=== PATIENT | female | born 2000 | race Caucasian/White ===

== ENCOUNTER 2023-07-03 16:44 | Emergency (ER) | payer MEDICAID, SELFPAY ==
--- NOTE | 2023-07-03 16:49 | ECG_ITS ---
[facility] Test Date: 2023-07-03 Pat Name: Helen Greenwood Department: Room: Gender: Female Shirt Bander: : 2000 Requested By: Jaguar Ramos Order Number: [id number] Faustino MD: Margaret Hurtado M.D. Measurements Intervals [place] Rate: 73 P: 46 MS: 167 QRS: 56 QRSD: 76 T: 38 QT: 361 QTc: 399 Interpretive Statements SINUS RHYTHM POSSIBLE LEFT ATRIAL ENLARGEMENT [-0.1mV P-WAVE IN V1/V2] No previous ECG available for comparison Electronically Signed On 07-03-2023 17:30:44 CDT by Margaret Hurtado M.D. [id number]
[2023-07-03 16:53] VITALS: BP 143/89; PULSE 82; RESP 16; TEMP 36.6; O2SAT 100; BMI 31.6
--- NOTE | 2023-07-03 18:24 | W.ED.SOB ---
HPI - SOB/Dyspnea General: Chief Complaint: Shortness of Breath/Dyspnea Stated Complaint: sob, possible asthma Time Seen by Provider: 07/03/23 17:28 History of Present Illness: HPI Narrative: 22-year-old female reports that she is feeling some tightness in her lungs making it harder to breathe. She reports has been doing some moving and has been exposed to a lot of particulate matter in the air as well as allergens. She does have a history of asthma. She tried using her inhaler and her nebulizer but did not seem to get relief. In the past she has been on montelukast for allergies and asthma. She is having a mild cough but it is rare and more triggered by what she feels to be bronchospasm or tightness. No fever, chills, swelling, syncope, diaphoresis. No symptoms of URI. Oxygen Saturation is 100% on arrival. Review of Systems General: Reports: 10 or more systems reviewed and unremarkable except in HPI and below PFSH ED PFSH: Social History Smoking and tobacco/nicotine status: never used tobacco/nicotine Physical Exam Const: COMMON NORMALS: no limitations, alert and well nourished EXAM LIMITATIONS: no altered mental status HENMT: COMMON NORMALS: normocephalic, atraumatic and external ears normal HEAD & SCALP: normocephalic and atraumatic EXTERNAL EAR: Yes external ears normal MOUTH: no muffled voice Neck/C-Spine: COMMON NORMALS: no JVD GENERAL: Yes normal visual inspection and Yes trachea midline Resp: COMMON NORMALS: normal respiratory effort, No retractions, No use of accessory muscles and clear to auscultation bilaterally AUSCULTATION: clear to auscultation bilaterally, normal I/E ratio, no crackles, no rales, no rhonchi, no wheezes, breath sounds present and lung sounds not diminished Cardio: COMMON NORMALS: no JVD, regular rate and regular rhythm RATE: regular rate RHYTHM: regular rhythm Extremity: COMMON NORMALS: normal to inspection Neuro: COMMON NORMALS: moves all extremities, no focal motor deficits and no sensory deficits noted SENSORIUM/ORIENTATION: Yes alert SPEECH: speech normal Psych: COMMON NORMALS: mental status grossly normal, Normal thought process present, cooperative, normal affect and speech normal SPEECH: Yes normal speech THOUGHT PROCESS: Normal thought process present Skin: COMMON NORMALS: no rashes or lesions noted, turgor normal and no jaundice GENERAL SKIN EXAM: no rashes or lesions noted and turgor normal Course Vital Signs: Vital signs: Vital Signs Temperature 97.9 F 07/03/23 16:53 Pulse Rate 82 07/03/23 18:29 Respiratory Rate 16 07/03/23 18:25 Blood Pressure 143/89 07/03/23 16:53 Pulse Oximetry 100 07/03/23 18:25 Oxygen Delivery Me thod Room Air 07/03/23 18:25 MDM - SOB/Dyspnea Medical Decision Making Well-appearing, nontoxic, no acute distress. lungs clear. inhalational particulate matter and allergens reported by history. We will try montelukast and a Decadron shot. Do not suspect pneumonia, effusion, dissection, PE, acute coronary syndrome, heart attack, effusion, pneumothorax, Or other emergent etiology. No radiology studies performed this visit Discharge Plan Discharge Patient Disposition: Home Clinical Impression: Bronchospasm Condition: Stable Prescriptions: New montelukast 10 mg tablet 10 mg PO DAILY Qty: 30 2RF Discontinued montelukast 10 mg tablet 10 mg PO DAILY amoxicillin 500 mg capsule 500 mg PO BID 10 Days Qty: 20 0RF No Action aripiprazole [Abilify] 20 mg tablet 20 mg PO DAILY venlafaxine 75 mg tablet 75 mg PO DAILY Discharge Orders: Discharge ED (Routine); Ordered 07/03/23 Ordered By: Zachary Ramirez Discharge Diet: Advance as tolerated Discharge Activity: Increase activity as tolerated Patient Instructions: Bronchospasm (ED) Activity Restrictions/Additional Instructions: You have received Decadron 10mg steroid. Take monteleukast as directed. Use albuterol inhaler and or nebulizer. Call your doctor if you are not improving. Go to ER for emergent symptoms. Coding Level of Care Code ED Cloth Mercerizing Supervisor for Jazmine Cruz
[2023-07-03 18:25] VITALS: PULSE 80; RESP 16; O2SAT 100
[2023-07-03] MEDS: albuterol 2.5 mg/3 mL Neb INHALATION (18:27)
[2023-07-03 18:29] VITALS: PULSE 82
[2023-07-03] MEDS: cetirizine 10 mg Tablet PO (18:51)
[2023-07-03] MEDS: dexamethasone 10 mg/mL INJ IM (18:52)
[2023-07-03 19:22] VITALS: BP 141/98; PULSE 90; RESP 18; O2SAT 90
== END 2023-07-03 19:24 | disposition home or self-care (01) ==
PROVIDERS: Emergency Provider Emergency Medicine
DX: J98.01 Acute bronchospasm (principal)
CPT/HCPCS: 93005; 94640; 96372; 99284; J1100; J7613

== ENCOUNTER 2023-07-18 08:31 | Emergency (ER) | payer MEDICAID, SELFPAY ==
--- NOTE | 2023-07-18 08:38 | XR_ITS ---
WS: [id number] Portable AP upright chest, 07/18/2023 Clinical Data: dyspnea/cough Comparison: None. Findings: No nodules, masses or effusions are seen. The heart is normal. The pulmonary vascularity is not increased. No pneumonia or pneumothorax is seen. Monitor leads are on the chest wall. Impression: Negative chest.
[2023-07-18 08:41] VITALS: BP 130/68; PULSE 105; RESP 22; TEMP 36.5; O2SAT 100; BMI 39.0
[2023-07-18 08:48] VITALS: BP 130/68; PULSE 95; RESP 22; O2SAT 99
[2023-07-18] MEDS: ipratropium-albuterol 3 mL Neb INHALATION (08:49)
[2023-07-18 08:50] VITALS: PULSE 94; RESP 16; O2SAT 98
--- NOTE | 2023-07-18 08:53 | PC.PHAR ---
pt states she takes care of her own medications- pt states stop taking her meds months ago and then started taking a week or two ago but states it made her chest hurt so she stop taking again-notes are made in the pharmacy comments with last filled dates-abilify 20mg daily last filled 11/05/22 90d/s,flovent 220mcg 1p bid filled 02/09/23 30d/s,montelukast 10mg daily last filled 11/05/22 90d/s,topamax 50mg bid filled 11/09/22 30d/s and effexor er 75mg daily filled 02/14/23 90d/s-pt states she hasnt taken trazodone 50mg hs for months [facility] last filled 10/16/22 90d/s
[2023-07-18 08:56] VITALS: PULSE 96; RESP 16; O2SAT 98
[2023-07-18 09:08] LABS: Basophils # 0.1 10^3/uL (0.0-0.1); Basophils % 0.7 %; Eosinophils # 0.4 10^3/uL (0.0-0.8); Eosinophils % 4.6 %; Hematocrit 37.1 % (36-47); Lymphocytes # 1.6 10^3/uL (0.8-4.8); Lymphocytes % 21.4 %; Mean Corpuscular HGB Conc 32.9 g/dL (30-55); Mean Corpuscular Hemoglobin 30.7 pg (27-33); Mean Corpuscular Volume 93.5 fl (85-98); Monocytes # 0.6 10^3/uL (0.2-0.9); Monocytes % 7.3 %; Neutrophils # 5.04 10^3/uL (1.8-7.7); Neutrophils % 65.5 %; Nucleated Red Blood Cells % 0 %; Platelet Count 231 10^3/cmm (157-399); Red Blood Count 3.97 10^6/uL (3.85-5.65); Red Cell Distribution Width 11.9 % (12.1-15.1); White Blood Count 7.68 10^3/uL (3.29-11.43)
--- NOTE | 2023-07-18 09:09 | W.ED.GENADLT ---
HPI - General Adult General: Chief complaint: General Medical Stated complaint: SOB Time Seen by Provider: 07/18/23 08:36 Source: patient Mode of arrival: ambulatory History of Present Illness: 22-year-old female complains sinus congestion and drainage for about the last 2 weeks. No fever sweats or chills nonproductive cough no vomiting or diarrhea. Sinus drainage is precipitating a significant cough. She denies any hematemesis coffee-ground emesis no epistaxis. Cough is minimally productive. Onset (ago): week(s) Severity: moderate Relieving factors: none Exacerbating factors: none Associated symptoms: Reports cough; Deny chest pain, confusion, diaphoresis, decreased appetite, dyspnea, fevers/chills, headache(s), malaise, nausea, rash, palpitations, seizures, short of breath, syncope, vomiting or weakness Treatments prior to arrival: none Review of Systems Const: Denies: fever(s), chills, malaise or diaphoresis Card: Denies: chest pain, palpitations or syncope Resp: Denies: dyspnea GI: Denies: abdominal pain, nausea or vomiting : Denies: dysuria, urinary frequency or urinary urgency Musc: Denies: neck pain or back pain Skin/Breast: Denies: rash Neuro: Denies: headache(s) or confusion PFSH ED PFSH: Social History Smoking and tobacco/nicotine status: never used tobacco/nicotine Physical Exam Const: COMMON NORMALS: no acute distress GENERAL APPEARANCE: cooperative and comfortable ORIENTATION/CONSCIOUSNESS: Yes awake, Yes oriented to person, Yes oriented to place and Yes oriented to time HENMT: COMMON NORMALS: normocephalic, atraumatic and hearing grossly normal bilaterally HEAD & SCALP: normocephalic and atraumatic Resp: COMMON NORMALS: normal respiratory effort, No retractions, No use of accessory muscles and clear to auscultation bilaterally AUSCULTATION: clear to auscultation bilaterally Cardio: COMMON NORMALS: regular rate, regular rhythm and No murmurs present (Cardio) RATE: regular rate RHYTHM: regular rhythm GI: COMMON NORMALS: Soft to palpation and No hepatosplenomegaly present AUSCULTATION: Yes normoactive bowel sounds PALPATION: Yes Soft to palpation, No Tenderness to palpation present (GI), No Guarding due to palpation present (GI) and Yes No hepatosplenomegaly present Extremity: COMMON NORMALS: normal to inspection, capillary refill normal, no clubbing, cyanosis or edema, no calf tenderness and no pedal edema Neuro: SENSORIUM/ORIENTATION: Yes oriented to person, Yes oriented to place and Yes oriented to time Skin: COMMON NORMALS: no rashes or lesions noted GENERAL SKIN EXAM: no rashes or lesions noted Course Vital Signs: Vital signs: Vital Signs Temperature 97.7 F 07/18/23 08:41 Pulse Rate 96 07/18/23 08:56 Respiratory Rate 16 07/18/23 08:56 Blood Pressure 130/68 07/18/23 08:48 Pulse Oximetry 98 07/18/23 08:56 Oxygen Delivery Me thod Room Air 07/18/23 08:56 MDM - General Adult Medical Decision Making Moderate sinusitis has failed supportive cares. Start amoxicillin clavulanic acid 875 twice daily for 7 days Medical Records I reviewed the patient's medical records. Lab Data I reviewed the patient's lab results. 07/18/23 08:51 07/18/23 08:51 Laboratory Results WBC 7.68 10^3/uL (3.29-11.43) 07/18/23 08:51 RBC 3.97 10^6/uL (3.85-5.65) 07/18/23 08:51 Hgb 12.20 g/dL (11.27-16.99) 07/18/23 08:51 Hct 37.1 % (36-47) 07/18/23 08:51 MCV 93.5 fl (85-98) 07/18/23 08:51 MCH 30.7 pg (27-33) 07/18/23 08:51 MCHC 32.9 g/dL (30-55) 07/18/23 08:51 RDW 11.9 % (12.1-15.1) L 07/18/23 08:51 Plt Count 231 10^3/cmm (157-399) 07/18/23 08:51 MPV 9.0 fL (7.4-10.4) 07/18/23 08:51 Neut % (Auto) 65.5 % 07/18/23 08:51 Lymph % (Auto) 21.4 % 07/18/23 08:51 [place] % (Auto) 7.3 % 07/18/23 08:51 Eos % (Auto) 4.6 % 07/18/23 08:51 Baso % (Auto) 0.7 % 07/18/23 08:51 Neut # (Auto) 5.04 10^3/uL (1.8-7.7) 07/18/23 08:51 Lymph # (Auto) 1.6 10^3/uL (0.8-4.8) 07/18/23 08:51 [place] # (Auto) 0.6 10^3/uL (0.2-0.9) 07/18/23 08:51 Eos # (Auto) 0.4 10^3/uL (0.0-0.8) 07/18/23 08:51 Baso # (Auto) 0.1 10^3/uL (0.0-0.1) 07/18/23 08:51 Nucleated RBC % (auto) 0 % 07/18/23 08:51 Nucleated RBCs # 0.0 /100WBC 07/18/23 08:51 Sodium 140 mmol/L (136-145) 07/18/23 08:51 Potassium 4.0 mmol/L (3.5-5.1) 07/18/23 08:51 Chloride 108 mmol/L (98-107) H 07/18/23 08:51 Carbon Dioxide 21 mmol/L (22-29) L 07/18/23 08:51 Anion Gap 15.0 (5-19) 07/18/23 08:51 BUN 10 mg/dL (6-20) 07/18/23 08:51 Creatinine 0.5 mg/dL (0.5-0.9) 07/18/23 08:51 GFR Calculation 151.6 mL/min (90-130) H 07/18/23 08:51 Glucose 136 mg/dL (65-115) H 07/18/23 08:51 Calculated Osmolality 291 mOsm/kg (285-295) 07/18/23 08:51 Calcium 8.8 mg/dL (8.5-10.5) 07/18/23 08:51 Total Bilirubin 0.2 mg/dL (0.15-1.2) 07/18/23 08:51 AST 15 U/L (0-32) 07/18/23 08:51 ALT 22 U/L (0-33) 07/18/23 08:51 Alkaline Phosphatase 76 U/L (35-105) 07/18/23 08:51 Total Protein 6.5 g/dL (6.6-8.7) L 07/18/23 08:51 Albumin 3.8 g/dL (3.5-5.2) 07/18/23 08:51 Globulin 2.7 g/dL (1.3-4.6) 07/18/23 08:51 All radiology interpretation(s) finalized by discharge Discharge Plan Discharge Patient Disposition: Home Clinical Impression: Sinusitis, acute Condition: Stable Prescriptions: New amoxicillin-pot clavulanate 875-125 mg tablet 1 tab PO BID Qty: 20 0RF No Action aripiprazole [Abilify] 20 mg tablet 20 mg PO DAILY topiramate [Topamax] 50 mg tablet 50 mg PO BID montelukast 10 mg tablet 10 mg PO DAILY Qty: 30 2RF albuterol sulfate 90 mcg/actuation HFA aerosol inhaler 2 puff INHALATION Q4H PRN (Reason: Shortness Of Breath) Flonase Allergy Relief 50 mcg/actuation spray,suspension 2 spray intranasal DAILY PRN (Reason: Allergy Symptoms) Rx Instructions: administer into each nostril Flovent HFA 220 mcg/actuation HFA aerosol inhaler 1 puff INHALATION BID venlafaxine 75 mg capsule,extended release 24hr 75 mg PO DAILY Discharge Orders: Discharge ED (Routine); Ordered 07/18/23 Ordered By: Jaguar Adam Referrals: Becca Harris PA [Primary Care Provider] - Discharge Diet: Usual diet Discharge Activity: Resume usual activity Patient Instructions: Sinusitis (ED), Opioid Safety, Pain Management Activity Restrictions/Additional Instructions: Thank you for choosing [facility] for your healthcare needs today. Please realize this is an emergency room and that we are providing you with a medical screening exam and this may not be complete and all inclusive of all the testing and or work up that you may need to determine your ailment or severity of your illness. It is very important that you follow up as instructed or that you return to the Emergency Department should you have concerns or if your condition changes or worsens in any way. Coding Level of Care Code ED Medical Field Representative for Jazmine Cruz
[2023-07-18 09:31] LABS: Alanine Aminotransferase 22 U/L (0-33); Albumin Level 3.8 g/dL (3.5-5.2); Alkaline Phosphatase 76 U/L (35-105); Aspartate Amino Transferase 15 U/L (0-32); Blood Urea Nitrogen 10 mg/dL (6-20); Calcium 8.8 mg/dL (8.5-10.5); Carbon Dioxide 21 mmol/L (22-29); Chloride 108 mmol/L (98-107); Globulin 2.7 g/dL (1.3-4.6); Glomerular Filtration Rate 151.6 mL/min (90-130); Glucose 136 mg/dL (65-115); Osmolality Calculated 291 mOsm/kg (285-295); Sodium 140 mmol/L (136-145); Total Bilirubin 0.2 mg/dL (0.15-1.2); Total Protein 6.5 g/dL (6.6-8.7)
== END 2023-07-18 09:20 | disposition home or self-care (01) ==
PROVIDERS: Emergency Provider Family Medicine; PCP Physician Assistant
DX: J01.90 Acute sinusitis, unspecified (principal)
CPT/HCPCS: 36415; 71045; 80053; 85025; 94640; 99284

== ENCOUNTER 2023-07-31 09:51 | Inpatient (IN) | payer MEDICAID, SELFPAY ==
[2023-07-31 09:57] VITALS: BP 171/96; PULSE 86; RESP 17; TEMP 36.6; O2SAT 99; BMI 32.2
--- NOTE | 2023-07-31 10:00 | ECG_ITS ---
[facility] Test Date: 2023-07-31 Pat Name: Helen Greenwood Department: Room: Gender: Female Upholstery Handler: : 2000 Requested By: Mauricio Cardona Order Number: [id number] Harmon MD: Evelin Cast M.D. Measurements Intervals [place] Rate: 76 P: 38 [place]: 172 QRS: 48 QRSD: 84 T: 26 QT: 348 QTc: 392 Interpretive Statements SINUS RHYTHM Compared to ECG 07/03/2023 16:52:46 No significant changes Electronically Signed On 07-31-2023 12:40:10 CENTER MEDICAL DIRECTOR by Evelin Cast M.D. [id number]
--- NOTE | 2023-07-31 10:14 | W.ED.PSYCHS ---
HPI - Psych General: Chief Complaint: Psychiatric Symptoms Stated Complaint: SI Time Seen by Provider: 07/31/23 10:00 History of Present Illness: 22-year-old female presents emergency department with complaints of feeling severely depressed for a very long time. She states she has not sought out help. 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 She states she is depressed about having to depend on everyone because she does not know how to drive. She states that she does not necessarily have a support system as she does not feel like she can talk to anyone about her problems. She is very tearful while in the emergency department. She states that she just wants to go to sleep and never wake up again. She states that she does not have a specific plan and she does intermittently smile. She does have poor eye contact during the initial evaluation. She denies previous inpatient admissions and denies previous psychiatric or behavioral counseling. She denies previous suicide attempt. She denies homicidal ideation. Associated symptoms: Reports depression and suicidal ideation Review of Systems General: Reports: 10 or more systems reviewed and unremarkable except in HPI and below Psych: Reports: depression, hopelessness and suicidal ideation [facility] ED PFSH: Medical History (Updated 07/31/23 @ 10:18 by Mauricio Cardona MD) Psychiatric care Social History Smoking and tobacco/nicotine status: never used tobacco/nicotine Physical Exam Narrative: EXAM NARRATIVE: Constitutional: the patient appears well nourished and with normal development. Vital signs reviewed as documented. HENMT: Normocephalic, atraumatic. External ears with normal appearance without drainage. Nose without drainage, normal appearance. Mucus membranes moist. Neck is supple, No jugular venous distension, trachea is midline, no appreciable carotid bruits. No lymphadenopathy. No meningeal signs. Flexion, extension and lateral rotation is without pain. Eyes: Pupils are equal, round, reactive to light and accommodation. No scleral icterus. Extra-ocular movement are intact. Thorax is symmetrical and with equal rise and fall with respirations. Resp: Lungs are clear to auscultation. No wheezes, rales, crackles or ronchi at present. Cardio: Regular rate and rhythm. Positive S1, S2. No appreciable murmurs, rubs or gallops. GI: Abdominal exam reveals normal bowel sounds to all quadrants. No organomegaly. No obvious palpable masses noted. No hepatomegally appreciated. Soft, nontender to palpation. Extremity: Extremities are non-edematous and both femoral and pedal pulses are 2+ and equal bilaterally. Moves all extremities well, sensation in all extremities. Neuro: Alert and oriented x4, person, place, time and situation. Cranial nerves II through XII are grossly intact, there is no focal neurological deficits that I can appreciate at present. Motor strength in the upper and lower extremities are equal and bilateral 5/5. Psych: Cooperative, calm, tearful, depressed, normal thought process, appropriate judgment. Positive for suicidal ideations without plan. Skin: No lesions, rashes. No gross abnormalities noted. Back: Symmetrical, no obvious deformity, No CVA tenderness Course Vital Signs: Vital signs: Vital Signs Temperature 97.9 F 07/31/23 09:57 Pulse Rate 86 07/31/23 09:57 Respiratory Rate 17 07/31/23 09:57 Blood Pressure 171/96 07/31/23 09:57 Pulse Oximetry 99 07/31/23 09:57 Oxygen Delivery Me thod Room Air 07/31/23 09:57 MDM - Psych Medical Decision Making Physical exam completed, laboratory evaluation to include CBC, CMP alcohol urine drug screen EKG COVID screen urine hCG and urinalysis. Medical Records I reviewed the patient's medical records. Lab Data I reviewed the patient's lab results. 07/31/23 10:17 07/31/23 10:17 Laboratory Results WBC 7.03 10^3/uL (3.29-11.43) 07/31/23 10:17 RBC 4.11 10^6/uL (3.85-5.65) 07/31/23 10:17 Hgb 12.50 g/dL (11.27-16.99) 07/31/23 10:17 Hct 37.7 % (36-47) 07/31/23 10:17 MCV 91.7 fl (85-98) 07/31/23 10:17 MCH 30.4 pg (27-33) 07/31/23 10:17 MCHC 33.2 g/dL (30-55) 07/31/23 10:17 RDW 11.9 % (12.1-15.1) L 07/31/23 10:17 Plt Count 337 10^3/cmm (157-399) 07/31/23 10:17 MPV 9.0 fL (7.4-10.4) 07/31/23 10:17 Neut % (Auto) 66.8 % 07/31/23 10:17 Lymph % (Auto) 23.2 % 07/31/23 10:17 [place] % (Auto) 6.7 % 07/31/23 10:17 Eos % (Auto) 2.3 % 07/31/23 10:17 Baso % (Auto) 0.7 % 07/31/23 10:17 Neut # (Auto) 4.70 10^3/uL (1.8-7.7) 07/31/23 10:17 Lymph # (Auto) 1.6 10^3/uL (0.8-4.8) 07/31/23 10:17 [place] # (Auto) 0.5 10^3/uL (0.2-0.9) 07/31/23 10:17 Eos # (Auto) 0.2 10^3/uL (0.0-0.8) 07/31/23 10:17 Baso # (Auto) 0.1 10^3/uL (0.0-0.1) 07/31/23 10:17 Nucleated RBC % (auto) 0 % 07/31/23 10:17 Nucleated RBCs # 0.0 /100WBC 07/31/23 10:17 Sodium 138 mmol/L (136-145) 07/31/23 10:17 Potassium 3.7 mmol/L (3.5-5.1) 07/31/23 10:17 Chloride 103 mmol/L (98-107) 07/31/23 10:17 Carbon Dioxide 22 mmol/L (22-29) 07/31/23 10:17 Anion Gap 16.7 (5-19) 07/31/23 10:17 BUN 13 mg/dL (6-20) 07/31/23 10:17 Creatinine 0.6 mg/dL (0.5-0.9) 07/31/23 10:17 GFR Calculation 122.8 mL/min (90-130) 07/31/23 10:17 Glucose 123 mg/dL (65-115) H 07/31/23 10:17 Calculated Osmolality 287 mOsm/kg (285-295) 07/31/23 10:17 Calcium 9.2 mg/dL (8.5-10.5) 07/31/23 10:17 Total Bilirubin 0.4 mg/dL (0.15-1.2) 07/31/23 10:17 AST 19 U/L (0-32) 07/31/23 10:17 ALT 28 U/L (0-33) 07/31/23 10:17 Alkaline Phosphatase 79 U/L (35-105) 07/31/23 10:17 Total Protein 7.2 g/dL (6.6-8.7) 07/31/23 10:17 Albumin 4.4 g/dL (3.5-5.2) 07/31/23 10:17 Globulin 2.8 g/dL (1.3-4.6) 07/31/23 10:17 TSH 2.90 uIU/mL (0.27-4.20) 07/31/23 10:17 HCG, Qual Negative (Negative) 07/31/23 10:37 Urine Color Yellow (Yellow) 07/31/23 10:37 Urine Appearance Cloudy (CLEAR) A 07/31/23 10:37 Urine pH 5 (5-7) 07/31/23 10:37 Ur Specific [place] 1.030 (1.005-1.030) 07/31/23 10:37 Urine Protein Neg (Negative) 07/31/23 10:37 Urine Glucose (UA) Norm (Normal) 07/31/23 10:37 Urine Ketones Negative (Negative) 07/31/23 10:37 Urine Blood 3+ (Negative) H 07/31/23 10:37 Urine Nitrate Negative (Negative) 07/31/23 10:37 Urine Bilirubin Neg (Negative) 07/31/23 10:37 Urine Urobilinogen Norm mg/dL (Negative) 07/31/23 10:37 Ur Leukocyte Esterase Trace (Negative) H 07/31/23 10:37 Urine RBC Rare /hpf (0-2) 07/31/23 10:37 Urine WBC 0-4 /hpf (0-5) H 07/31/23 10:37 Ur Squamous Epith Cells 5-10 /hpf (0-5) H 07/31/23 10:37 Amorphous Sediment 3+ /hpf 07/31/23 10:37 Urine Bacteria Trace /hpf (NONE) 07/31/23 10:37 Salicylates < 0.3 mg/dL (3-10) L 07/31/23 10:17 Urine Opiates Screen Negative ng/mL (Negative) 07/31/23 10:37 Acetaminophen < 5.0 ug/mL (10-30) L 07/31/23 10:17 Ur Barbiturates Screen Negative ng/mL (Negative) 07/31/23 10:37 Ur Phencyclidine Scrn Negative ng/mL (Negative) 07/31/23 10:37 Ur Amphetamines Screen Negative ng/mL (Negative) 07/31/23 10:37 U Benzodiazepines Scrn Negative ng/mL (Negative) 07/31/23 10:37 Urine Cocaine Screen Negative ng/mL (Negative) 07/31/23 10:37 U Marijuana (THC) Screen Positive ng/mL (Negative) H 07/31/23 10:37 Ethyl Alcohol < 10 mg/dL (0-10) 07/31/23 10:17 SARS-CoV-2 Ag (Rapid) negative (Negative) 07/31/23 10:25 No radiology studies performed this visit Discharge Plan Discharge Patient Disposition: Admitted As Inpatient Clinical Impression: Suicidal ideation, Depression Condition: Stable Prescriptions: No Action aripiprazole [Abilify] 20 mg tablet 20 mg PO DAILY topiramate [Topamax] 50 mg tablet 50 mg PO BID montelukast 10 mg tablet 10 mg PO DAILY Qty: 30 2RF albuterol sulfate 90 mcg/actuation HFA aerosol inhaler 2 puff INHALATION Q4H PRN (Reason: Shortness Of Breath) Flonase Allergy Relief 50 mcg/actuation spray,suspension 2 spray intranasal DAILY PRN (Reason: Allergy Symptoms) Rx Instructions: administer into each nostril Flovent HFA 220 mcg/actuation HFA aerosol inhaler 1 puff INHALATION BID venlafaxine 75 mg capsule,extended release 24hr 75 mg PO DAILY amoxicillin-pot clavulanate 875-125 mg tablet 1 tab PO BID Qty: 20 0RF Referrals: Becca Harris PA [Primary Care Provider] - Coding Level of Care Code ED [employer] Processing Group Leader for Chg Anthony
[2023-07-31 10:32] LABS: Basophils # 0.1 10^3/uL (0.0-0.1); Basophils % 0.7 %; Eosinophils # 0.2 10^3/uL (0.0-0.8); Eosinophils % 2.3 %; Hematocrit 37.7 % (36-47); Lymphocytes # 1.6 10^3/uL (0.8-4.8); Lymphocytes % 23.2 %; Mean Corpuscular HGB Conc 33.2 g/dL (30-55); Mean Corpuscular Hemoglobin 30.4 pg (27-33); Mean Corpuscular Volume 91.7 fl (85-98); Monocytes # 0.5 10^3/uL (0.2-0.9); Monocytes % 6.7 %; Neutrophils % 66.8 %; Nucleated Red Blood Cells % 0 %; Platelet Count 337 10^3/cmm (157-399); Red Blood Count 4.11 10^6/uL (3.85-5.65); Red Cell Distribution Width 11.9 % (12.1-15.1); White Blood Count 7.03 10^3/uL (3.29-11.43)
[2023-07-31 10:47] LABS: SARS Covid-2 Antigen negative (Negative)
[2023-07-31 10:56] LABS: Alanine Aminotransferase 28 U/L (0-33); Albumin Level 4.4 g/dL (3.5-5.2); Alkaline Phosphatase 79 U/L (35-105); Anion Gap 16.7 (5-19); Aspartate Amino Transferase 19 U/L (0-32); Blood Urea Nitrogen 13 mg/dL (6-20); Calcium 9.2 mg/dL (8.5-10.5); Carbon Dioxide 22 mmol/L (22-29); Chloride 103 mmol/L (98-107); Globulin 2.8 g/dL (1.3-4.6); Glomerular Filtration Rate 122.8 mL/min (90-130); Glucose 123 mg/dL (65-115); Osmolality Calculated 287 mOsm/kg (285-295); Potassium 3.7 mmol/L (3.5-5.1); Sodium 138 mmol/L (136-145); Total Bilirubin 0.4 mg/dL (0.15-1.2); Total Protein 7.2 g/dL (6.6-8.7)
[2023-07-31 10:58] LABS: Acetaminophen < 5.0 ug/mL (10-30); Alcohol Level < 10 mg/dL (0-10); Salicylate < 0.3 mg/dL (3-10)
[2023-07-31 11:07] LABS: HCG Qualitative Urine. Negative (Negative)
[2023-07-31 11:14] LABS: Amphetamines Screen Urine Negative (Negative); Barbiturates Screen Urine Negative (Negative); Benzodiazepines Screen Urine Negative (Negative); Cocaine Screen Urine Negative (Negative); Opiate Screen Urine Negative (Negative); PCP Screen Urine Negative (Negative); THC Screen Urine Positive (Negative)
[2023-07-31 11:33] LABS: Blood Urine 3+ (Negative); Glucose Urine UA Norm (Normal); Ketones Urine Negative (Negative); Protein Urine Neg (Negative); Urine Appearance Cloudy (CLEAR); Urine Color Yellow (Yellow)
[2023-07-31 11:34] LABS: Add Urine Microscopic? YES; Bilirubin Urine Neg (Negative); Leukocyte Esterase Urine Trace (Negative); Nitrate Urine Negative (Negative); Urobilinogen Urine Norm (Negative); pH Urine 5 (5-7)
[2023-07-31 11:35] LABS: Bacteria Urine TRACE /hpf; RBC Urine RARE /hpf (0-2); WBC Urine 0-4 /hpf (0-5)
[2023-07-31 11:36] LABS: Amorphous Sediment Urine 3+ /hpf
[2023-07-31 11:37] LABS: Add Urine Culture? No
[2023-07-31 14:00] VITALS: BP 119/85; PULSE 88; RESP 17; TEMP 36.6; O2SAT 100
--- NOTE | 2023-07-31 17:17 | PC.NURSE ---
This nurse present when security disposed of patient's cannibus gummies. Patient aware.
--- NOTE | 2023-07-31 17:17 | PC.NURSE ---
security notified of pt having 2 baggies of cannabis gummy and one bag of cannabis cookies. security disposed of all cannabis stated in note.
[2023-07-31] MEDS: hyDROXYzine 25 mg Capsule 50 MG PO (18:52)
[2023-07-31] MEDS: flu vacc pf 2023-24 (6 mos+) 60 MCG IM (19:43)
[2023-07-31 20:27] VITALS: BP 117/74; PULSE 80; RESP 16; TEMP 36.9; O2SAT 100
[2023-08-01 06:00] VITALS: BP 93/68; PULSE 74; RESP 16; TEMP 36.5; O2SAT 94
[2023-08-01 07:48] LABS: Basophils # 0.1 10^3/uL (0.0-0.1); Basophils % 0.9 %; Eosinophils # 0.4 10^3/uL (0.0-0.8); Eosinophils % 7.1 %; Hematocrit 37.6 % (36-47); Lymphocytes % 35.1 %; Mean Corpuscular HGB Conc 32.2 g/dL (30-55); Mean Corpuscular Hemoglobin 30.3 pg (27-33); Mean Corpuscular Volume 94.2 fl (85-98); Monocytes # 0.4 10^3/uL (0.2-0.9); Monocytes % 6.9 %; Neutrophils % 49.6 %; Nucleated Red Blood Cells % 0 %; Platelet Count 311 10^3/cmm (157-399); Red Blood Count 3.99 10^6/uL (3.85-5.65); Red Cell Distribution Width 11.8 % (12.1-15.1); White Blood Count 5.64 10^3/uL (3.29-11.43)
[2023-08-01 08:08] LABS: Anion Gap 13.9 (5-19); Blood Urea Nitrogen 16 mg/dL (6-20); Calcium 9.1 mg/dL (8.5-10.5); Carbon Dioxide 25 mmol/L (22-29); Chloride 106 mmol/L (98-107); Glomerular Filtration Rate 122.8 mL/min (90-130); Glucose 107 mg/dL (65-115); Osmolality Calculated 294 mOsm/kg (285-295); Potassium 3.9 mmol/L (3.5-5.1); Sodium 141 mmol/L (136-145)
[2023-08-01] MEDS: ibuprofen 600 mg Tablet PO (12:15)
[2023-08-01 14:00] VITALS: BP 122/84; PULSE 71; RESP 14; TEMP 36.9; O2SAT 100
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
[2023-08-01] MEDS: ARIPiprazole 2 mg Tablet PO (16:18)
[2023-08-01] MEDS: venlafaxine ER (24HR) 37.5 mg Capsule PO (16:18)
--- NOTE | 2023-08-01 20:07 | PC.NURSE ---
pt ref vs resp 18
[2023-08-02 06:00] VITALS: BP 117/74; PULSE 75; RESP 12; TEMP 36.8; O2SAT 98
[2023-08-02] MEDS: ibuprofen 600 mg Tablet PO (07:15)
[2023-08-02] MEDS: venlafaxine ER (24HR) 75 mg Capsule PO (08:41)
[2023-08-02] MEDS: ARIPiprazole 10 mg Tablet 5 MG PO (08:41)
--- NOTE | 2023-08-02 12:11 | P.NPUPN_ITS ---
Subjective NPU Subjective: 22-year-old white female with generalized anxiety disorder and major depressive disorder recurrent admitted with suicidal ideation. She reported that she was feeling better today. She had endorsed an extended period of low energy and hopelessness. She reported not feeling as down today. She had reported some difficulties with concentration and stated that she had significant problems wi th sleep prior to coming into the hospital. She had reported improved sleep at night. Mental Status Exam MSE Comments: the patient is a casually dressed female who appeared her stated age with fleeting eye contact and adequate hygiene. There was no evidence of any abnormal involuntary motor movements tics or tremors appreciated. Speech was monotone in quality and normal in rate and volume. There was evidence of significant psychomotor retardation. Her thought process was linear logical and goal-directed. Her thought content showed no evidence of suicidal ideation. She denied any homicidal ideation. There was no clear evidence of delusional thinking. She did not appear to be responding internal stimuli. She was alert and oriented to person place time and situation. Her mood was described as depressed. Her affect was restricted in range. Her insight appeared fair. Her judgment was poor. Her impulse control appeared guarded. Vitals/I&O/Wt Last Vital Signs Temp 98.3 F 08/02/23 06:00 Pulse 75 08/02/23 06:00 Resp 12 08/02/23 06:00 BP 117/74 08/02/23 06:00 Pulse Ox 98 08/02/23 06:00 O2 Del Method Room Air 08/02/23 06:00 Data NPU 08/01/23 07:36 08/01/23 07:36 A&P Assessment and plan (1) Major depressive disorder, recurrent: (2) Generalized anxiety disorder: Plan 22-year-old white female with a history of recurrent major depressive disorder admitted with worsening depression with a history of generalized anxiety disorder as well currently on no medications and actively suicidal. 1. Encourage individual, group and milieu therapy. 2. Recommend sober living treatment at the highest level of care to which the patient is willing to commit. 3. Continue q-15 minute checks for safety.? 4.? Continue Abilify 5mg in am and Effexor XR 75mg in am. 5.? Will attempt to gather collateral information. Involuntary Hold Information 96 Hour Hold: 96 Hour Involuntary Admission: No Attestations NPU Medical Necessity Statement*: Inpatient hospitalization is medically necessary and deemed to ?be ?the clinically appropriate intervention at this time.? We will monitor/initiate medications and make changes as indicated.? The patient?s likely length of stay 5-7 days. Coding Level of Care Code Acute Code for Chg Fwd Diagnoses Major depressive disorder, recurrent F33.9 Generalized anxiety disorder F41.1
[2023-08-02 14:00] VITALS: BP 123/71; PULSE 79; RESP 16; TEMP 36.8; O2SAT 96
[2023-08-02 22:00] VITALS: BP 123/85; PULSE 80; RESP 16; TEMP 36.6; O2SAT 98
[2023-08-03 06:00] VITALS: BP 104/53; PULSE 81; RESP 16; TEMP 36.8; O2SAT 98
[2023-08-03] MEDS: ibuprofen 600 mg Tablet PO (06:06)
[2023-08-03] MEDS: venlafaxine ER (24HR) 75 mg Capsule PO (08:47)
[2023-08-03] MEDS: ARIPiprazole 10 mg Tablet 5 MG PO (08:47)
[2023-08-03 14:00] VITALS: BP 130/83; PULSE 77; RESP 17; TEMP 36.5; O2SAT 100
--- NOTE | 2023-08-03 18:33 | P.NPUPN_ITS ---
Subjective NPU Subjective: 22-year-old white female with generalized anxiety disorder and major depressive disorder recurrent admitted with suicidal ideation. Patient reported no side effects from the increase in Effexor. She had reported feeling less depressed and stated that she was not thinking about hurting herself at this time. She reported improved motivation to return home soon. Staff notes patient had been less isolative and more social with her peers. She had reported adequate sleep and reported feeling less anxious here. Mental Status Exam 2 MSE Comments: the patient is a casually dressed female who appeared her stated age with fleeting eye contact and adequate hygiene. There was no evidence of any abnormal involuntary motor movements tics or tremors appreciated. Speech was monotone in quality and normal in rate and volume. There was evidence of mild psychomotor retardation. Her thought process was linear, logical and goal- directed. Her thought content showed no evidence of suicidal ideation. She denied any homicidal ideation. There was no clear evidence of delusional thinking. She did not appear to be responding internal stimuli. She was alert and oriented to person, place, time, and situation. Her mood was described as better. Her affect was less restricted in range. Her insight appeared fair. Her judgment was poor. Her impulse control appeared guarded. Vitals/I&O/Wt Last Vital Signs Temp 97.7 F 08/03/23 14:00 Pulse 77 08/03/23 14:00 Resp 17 08/03/23 14:00 BP 130/83 08/03/23 14:00 Pulse Ox 100 08/03/23 14:00 O2 Del Method Room Air 08/03/23 06:00 Weight last 48 hrs Weight 74.899 kg Data NPU 08/01/23 07:36 08/01/23 07:36 A&P Assessment and plan (1) Major depressive disorder, recurrent: (2) Generalized anxiety disorder: Plan 22-year-old white female with a history of recurrent major depressive disorder admitted with worsening depression with a history of generalized anxiety disorder as well currently on no medications and actively suicidal. 1. Encourage individual, group and milieu therapy. 2. Recommend sober living treatment at the highest level of care to which the patient is willing to commit. 3. Continue q-15 minute checks for safety.? 4.? Continue Abilify 5mg in am and increase Effexor XR 112.5mg in am. 5.? Will attempt to gather collateral information. Involuntary Hold Information 96 Hour Hold: 96 Hour Involuntary Admission: No Attestations NPU Medical Necessity Statement*: Inpatient hospitalization is medically necessary and deemed to ?be ?the clinically appropriate intervention at this time.? We will monitor/initiate medications and make changes as indicated.? The patient?s likely length of stay 2-3 days. Coding Level of Care Code Acute Code for g Fwd Diagnoses Major depressive disorder, recurrent F33.9 Generalized anxiety disorder F41.1
[2023-08-03] MEDS: trazodone 50 mg Tablet PO (19:26)
[2023-08-03 20:03] VITALS: BP 121/84; PULSE 72; RESP 16; TEMP 36.8; O2SAT 95
[2023-08-04] MEDS: ibuprofen 600 mg Tablet PO ×2 (02:04→13:11)
[2023-08-04 06:00] VITALS: BP 129/81; PULSE 89; RESP 16; O2SAT 96
[2023-08-04] MEDS: venlafaxine ER (24HR) 37.5 mg Capsule 112.5 MG PO (08:09)
[2023-08-04] MEDS: ARIPiprazole 10 mg Tablet 5 MG PO (08:09)
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
[2023-08-04 13:53] VITALS: BP 129/81; PULSE 89; RESP 16; TEMP 37; O2SAT 96
== END 2023-08-04 15:32 | disposition home or self-care (01) | DRG 885 ==
LOC: ER 12:49 → NP 13:04
PROVIDERS: Admitting Provider Psychiatry & Neurology Psychiatry; Emergency Provider Internal Medicine; PCP Physician Assistant; Visit Provider Psychiatry & Neurology Psychiatry
DX: F33.9 Major depressive disorder, recurrent, unspecified (principal); R45.851 Suicidal ideations; Z62.810 Personal history of physical and sexual abuse in childhood; F41.1 Generalized anxiety disorder
CPT/HCPCS: 36415; 80048; 80053; 80306; 80307; 81001; 81025; 84443; 85025; 87426; 90471; 90686; 93005; 93010; 97150; 97165; 99285

== ENCOUNTER 2023-09-01 18:53 | Emergency (ER) | payer MEDICAID, SELFPAY ==
[2023-09-01 18:56] VITALS: BP 169/99; PULSE 78; RESP 15; TEMP 36.6; O2SAT 100; BMI 33.2
[2023-09-01] MEDS: ketorolac 60 mg/2 mL INJ IM (19:32)
--- NOTE | 2023-09-01 19:32 | ED_ITS ---
HPI - Headache General: Chief Complaint: Headache Stated Complaint: migraine Time Seen by Provider: 09/01/23 19:05 History of Present Illness: Patient is a 23-year-old female that presents to the emergency department with migraine x 12 hours. Patient reports nausea and vomiting and sensitivity to light. Initially, patient stated that she wanted to go to sleep and never wake up because the pain was so bad. She reports that she has been struggling with depression but denies desire or intent to harm herself or others. Associated symptoms: Deny chest pain, confusion, fever(s), malaise, nausea, rash or vomiting Review of Systems General: Reports: 10 or more systems reviewed and unremarkable except in HPI and below Const: Denies: fever(s), chills, change in appetite, change in weight, fatigue or malaise Eyes: Denies: change in vision, eye discomfort, eye discharge or eye redness ENMT: Denies: throat pain, enlarged tonsils, odynophagia, hoarseness, ear or mastoid pain, ear discharge, change in hearing, tinnitus, nasal discharge, nasal congestion, post nasal drip or sinus pain Card: Denies: chest pain, palpitations, irregular heart rhythm, edema, dyspnea on exertion, orthopnea or leg pain with exertion Resp: Denies: dyspnea, productive cough, non-productive cough, wheezing, stridor or chest congestion GI: Denies: abdominal pain, nausea, vomiting, dysphagia, diarrhea, const ipation, bloating, GI cramping or hematochezia : Denies: flank pain, difficulty voiding, dysuria, urinary frequency, urinary urgency, urinary hesitancy, oliguria or hematuria Musc: Denies: neck pain, back pain, extremity pain, joint pain, joint swelling, joint redness, joint warmth or muscle weakness Skin/Breast: Denies: rash, pruritus, erythema, photosensitivity or new lesions Neuro: Reports: headache(s); Denies: numbness in extremities, weakness in extremities, sensory changes, lack of coordination, difficulty walking, frequent falls, dizziness, confusion, Slurred speech present, difficulty communicating thoughts, seizure-like activity or involuntary movements Endo: Denies: polyuria, polydipsia or tired all the time Dawit/Lymph: Denies: easy bruising or easy bleeding PFS ED PFSH: Medical History (Updated 09/01/23 @ 20:21 by ALESSIA Felipe) Depression Psychiatric care Social History Smoking and tobacco/nicotine status: never used tobacco/nicotine Physical Exam Const: COMMON NORMALS: no acute distress, patient oriented x3 and alert GE NERAL APPEARANCE: cooperative ORIENTATION/CONSCIOUSNESS: Yes awake, Yes oriented to person, Yes oriented to place and Yes oriented to time HENMT: COMMON NORMALS: normocephalic and atraumatic HEAD & SCALP: normocephalic and atraumatic FACE & SINUS: normal facial exam MOUTH: Normal oral and palatal mucosa present THROAT: posterior oropharynx normal Eye: COMMON NORMALS: Equal, round and reactive pupils present, EOMs intact bilaterally, conjunctivae normal and no scleral icterus GENERAL EYE: appearance normal, both eyes and all related structures ALIGNMENT: Yes alignment normal PERIORBITAL: periorbital findings normal CONJUNCTIVA: Yes conjunctivae normal PUPIL: Yes Equal, round and reactive pupils present Neck/C-Spine: COMMON NORMALS: full ROM GENERAL: Yes normal visual inspection Lymph: LYMPHATIC: no lymphadenopathy noted Chest: COMMONS NORMALS: normal inspection of the chest Breast/axilla inspection: Yes no chest deformity, asymmetry, normal contours, no nodules, masses, tenderness Resp: COMMON NORMALS: normal respiratory effort, No retractions and No use of accessory muscles EFFORT & INSPECTION: Yes able to speak in complete sentences and Yes symmetric chest movement Cardio: COMMON NORMALS: regular rate, regular rhythm and Peripheral pulses 2+ throughout RATE: regular rate RHYTHM: regular rhythm PERIPHERAL PULSES: Peripheral pulses 2+ throughout GI: COMMON NORMALS: Normal to inspection, nondistended, normoactive bowel sounds present, Soft to palpation, non-tender and No hepatosplenomegaly present INSPECTION: Yes normal to inspection AUSCULTATION: Yes normoactive bowel sounds PALPATION: Yes Soft to palpation and Yes No hepatosplenomegaly present RECTAL EXAM: deferred Extremity: COMMON NORMALS: normal to inspection GENERAL: Yes normal exam except as noted Neuro: COMMON NORMALS: patient oriented x3 SENSORIUM/ORIENTATION: Yes a lert, Yes oriented to person, Yes oriented to place and Yes oriented to time CRANIAL NERVES: Yes CN normal except as noted Psych: COMMON NORMALS: mental status grossly normal, Normal thought process present, cooperative, activity/motor behavior normal, denies homicidal ideation and denies suicidal ideation THOUGHT PROCESS: Normal thought process present Skin: COMMON NORMALS: no rashes or lesions noted, no wounds and turgor normal GENERAL SKIN EXAM: no rashes or lesions noted and turgor normal Course Vital Signs: Vital signs: Vital Signs Temperature 98 F 09/01/23 18:56 Pulse Rate 78 09/01/23 18:56 Respiratory Rate 15 09/01/23 18:56 Blood Pressure 169/99 09/01/23 18:56 Pulse Oximetry 100 09/01/23 18:56 Oxygen Delivery Me thod Room Air 09/01/23 18:56 MDM - Headache Medical Decision Making Patient is a 23-year-old female presents with complaints of migraine. She denies any trauma. Abrupt onset of headache with photosensitivity and nausea. I treated her headache here with Norflex, Toradol, Decadron. She was reevaluated and had complete resolution of her symptoms. Organ to discharge her home with naproxen and Flexeril. Patient is to return to the emergency department for new, concerning, worsening symptoms No radiology studies performed this visit Discharge Plan Discharge Patient Disposition: Home Clinical Impression: Migraine Qualifiers: Migraine type: unspecified Status migrainosus presence: without status migrainosus Intractability: not intractable Qualified Code(s): G43.909 - Migraine, unspecified, not intractable, without status migrainosus Condition: Stable Prescriptions: New cyclobenzaprine 10 mg tablet 10 mg PO Q8H PRN (Reason: muscle spasm) Qty: 20 0RF naproxen sodium 375 mg tablet, ER multiphase 24 hr 375 mg PO DAILY PRN (Reason: headache) Qty: 20 0RF No Action aripiprazole 10 mg Tablet 5 mg PO DAILY 30 Days Qty: 15 1RF venlafaxine 150 mg capsule,extended release 24hr 150 mg PO DAILY 30 Days Qty: 30 1RF albuterol sulfate 90 mcg/actuation HFA aerosol inhaler 2 puff INHALATION Q4H PRN (Reason: Shortness Of Breath) fluticasone propionate [Flonase Allergy Relief] 50 mcg/actuation spray,suspension 2 spray intranasal DAILY PRN (Reason: Allergy Symptoms) Rx Instructions: administer into each nostril fluticasone propionate [Flovent HFA] 220 mcg/actuation HFA aerosol inhaler 1 puff INHALATION BID Discharge Orders: Discharge ED (Routine); Ordered 09/01/23 Ordered By: Omar De La Rosa Referrals: Becca Harris PA [Primary Care Provider] - Discharge Diet: Advance as tolerated Discharge Activity: Resume usual activity Patient Instructions: Migraine Headache (ED), Pain Management Activity Restrictions/Additional Instructions: Please return to the emergency department for new, concerning, worsening symptoms Please take the Flexeril and naproxen as prescribed Naproxen is in the same family as Aleve and ibuprofen. Please do not take additional nonsteroidal anti-inflammatory drugs?NSAID?while taking naproxen. Coding Level of Care Code ED Director Of Market Analysis for Jazmine Cruz
[2023-09-01] MEDS: dexamethasone 10 mg/mL INJ IM (19:33)
[2023-09-01] MEDS: orphenadrine 30 mg/mL Inj 2 mL 60 MG IM (19:34)
== END 2023-09-01 20:26 | disposition home or self-care (01) ==
PROVIDERS: Emergency Provider Nurse Practitioner; PCP Physician Assistant
DX: G43.909 Migraine, unspecified, not intractable, without status migrainosus (principal)
CPT/HCPCS: 96372; 99284; J1100; J1885; J2360

== ENCOUNTER 2023-09-05 21:05 | Emergency (ER) | payer MEDICAID, SELFPAY ==
[2023-09-05 21:07] VITALS: PULSE 150; RESP 20; TEMP 36.6; O2SAT 95; BMI 25.4
[2023-09-05 21:19] LABS: Basophils # 0.1 10^3/uL (0.0-0.1); Basophils % 0.6 %; Eosinophils # 0.8 10^3/uL (0.0-0.8); Eosinophils % 5.1 %; Hematocrit 37.7 % (36-47); Lymphocytes # 7.7 10^3/uL (0.8-4.8); Lymphocytes % 48.3 %; Mean Corpuscular HGB Conc 34.2 g/dL (30-55); Mean Corpuscular Hemoglobin 30.8 pg (27-33); Mean Platelet Volume 9.6 fL (7.4-10.4); Monocytes # 0.9 10^3/uL (0.2-0.9); Monocytes % 5.3 %; Neutrophils # 6.41 10^3/uL (1.8-7.7); Neutrophils % 40.2 %; Nucleated Red Blood Cells % 0 %; Platelet Count 505 10^3/cmm (157-399); Red Blood Count 4.19 10^6/uL (3.85-5.65); Red Cell Distribution Width 11.9 % (12.1-15.1); White Blood Count 15.95 10^3/uL (3.29-11.43)
[2023-09-05 21:20] VITALS: BP 179/129; PULSE 146; RESP 16; O2SAT 95
[2023-09-05] MEDS: sodium chloride 0.9% 1,000 ML 999 ML IV (21:26)
[2023-09-05] MEDS: LORazepam 2 mg/mL INJ 10 mL MDV IV (21:26)
[2023-09-05 21:41] LABS: Alanine Aminotransferase 21 U/L (0-33); Albumin Level 4.2 g/dL (3.5-5.2); Alkaline Phosphatase 86 U/L (35-105); Anion Gap 21.4 (5-19); Aspartate Amino Transferase 15 U/L (0-32); Blood Urea Nitrogen 10 mg/dL (6-20); Calcium 9.3 mg/dL (8.5-10.5); Carbon Dioxide 19 mmol/L (22-29); Chloride 101 mmol/L (98-107); Globulin 2.8 g/dL (1.3-4.6); Glucose 211 mg/dL (65-115); Osmolality Calculated 291 mOsm/kg (285-295); Potassium 3.4 mmol/L (3.5-5.1); Salicylate 0.6 mg/dL (3-10); Sodium 138 mmol/L (136-145); Total Bilirubin 0.2 mg/dL (0.15-1.2)
--- NOTE | 2023-09-05 21:42 | ECG_ITS ---
[facility] Test Date: 2023-09-05 Pat Name: Helen Greenwood Department: Room: Gender: Female Quantitative Consultant: : 2000 Requested By: Vern Reinoso Order Number: [id number] Faustino MD: Colton Alvarado M.D. Measurements Intervals [place] Rate: 133 P: 62 IN: 155 QRS: 40 QRSD: 79 T: 26 QT: 310 QTc: 462 Interpretive Statements SINUS TACHYCARDIA NONSPECIFIC ST & T-WAVE ABNORMALITY Compared to ECG 07/31/2023 10:11:48 T-wave abnormality now present Sinus rhythm no longer present Electronically Signed On 09-06-2023 13:32:21 LOFTER by Colton Alvarado M.D. [id number]
[2023-09-05 21:43] LABS: Acetaminophen < 5.0 ug/mL (10-30); Alcohol Level < 10 mg/dL (0-10)
--- NOTE | 2023-09-05 21:47 | ED_ITS ---
HPI - Overdose 2 General: Chief Complaint: Overdose Stated Complaint: THC ingestion Time Seen by Provider: 09/05/23 21:07 History of Present Illness: 23-year-old female brought to emergency room by EMS after ingesting 100 mg of THC. Patient reveals that she normally takes 10 mg but today she attempted to take 100 mg. She has any suicidal homicidal ideation. No hallucination. Upon present emergency room patient has some nausea and vomiting patient was very hostile and aggressive. She was easily redirected and able to follow commands. Patient denies taking any other medication or drugs at this time. Review of Systems 2 General: Reports: 10 or more systems reviewed and unremarkable except in HPI and below Const: Denies: fever(s), chills, body aches, change in appetite, change in weight, fatigue, malaise, diaphoresis or change in sleep pattern Card: Denies: chest pain, palpitations, irregular heart rhythm, edema, swelling of feet/ankles, lightheadedness, syncope, pre-syncope or dyspnea on exertion GI: Reports: nausea and vomiting Musc: Denies: neck pain, back pain, extremity pain, extremity swelling, joint pain, joint swelling, joint redness, joint warmth or joint stiffness PFSH ED 2 PFSH: Medical History (Updated 09/05/23 @ 23:32 by Vern Perez MD) Depression Psychiatric care Social History Smoking and tobacco/nicotine status: never used tobacco/nicotine Physical Exam 2 Const: EXAM LIMITATIONS: behavioral limitations GENERAL APPEARANCE: well kempt and combative; not in distress and not frail appearing NUTRITIONAL APPEARANCE: obese O RIENTATION/CONSCIOUSNESS: Yes awake, Yes oriented to place and Yes oriented to time HENMT: COMMON NORMALS: normocephalic, atraumatic, hearing grossly normal bilaterally, external ears normal, EAC's normal, TM's normal bilaterally, Normal external nose present, Normal nasal mucous membranes and turbinates present, moist oral mucous membranes, oropharynx normal, dentition normal and gingiva normal HEAD & SCALP: normocephalic and atraumatic NOSE: Normal external nose present and Normal nasal mucous membranes and turbinates present E XTERNAL EAR: Yes external ears normal EXTERNAL AUDITORY CANAL: EAC's normal TYMPANIC MEMBRANE: TM's normal bilaterally Eye: COMMON NORMALS: Equal, round and reactive pupils present, EOMs intact bilaterally, conjunctivae normal, no scleral icterus, no papilledema, normal visual marcano by confrontation and fundi normal bilaterally CONJUNCTIVA: Yes conjunctivae normal PUPIL: Yes Equal, round and reactive pupils present D IRECT OPHTHALMOSCOPY: Yes no papilledema and Yes fundi normal bilaterally Neck/C-Spine: COMMON NORMALS: full ROM, no lymphadenopathy, supple, no meningeal signs, no JVD, Thyroid normal and No carotid bruits THYROID: T hyroid normal Chest: COMMONS NORMALS: normal inspection of the chest, normal palpation of entire chest wall, normal inspection of the breasts and normal palpation of the breasts CHEST: No abnormal inspection of the chest, Yes Symmetrical chest wall rise, No crepitus and No localized rib tenderness with anteroposterior compression Breast/axilla inspection: Yes normal inspection of the breasts BREAST/AXILLA PALPATION: Yes normal palpation of the breasts Resp: COMMON NORMALS: normal respiratory effort, No retractions, No use of accessory muscles, clear to auscultation bilaterally and percussion normal A USCULTATION: clear to auscultation bilaterally PERCUSSION: percussion normal Cardio: COMMON NORMALS: no JVD, regular rhythm and S1 normal heart sound present JUGULAR VENOUS DISTENTION: no JVD RATE: tachycardic RHYTHM: r egular rhythm HEART SOUNDS: S1 normal heart sound present GI: COMMON NORMALS: Normal to inspection, nondistended, normoactive bowel sounds present, Soft to palpation, non-tender, No hepatosplenomegaly present, no masses and no bruits PALPATION: Yes Soft to palpation and Yes No hepatosplenomegaly present Extremity: COMMON NORMALS: normal to inspection, full ROM, capillary refill normal, no joint enlargement, no clubbing, cyanosis or edema, no calf tenderness and no pedal edema Neuro: SENSORIUM/ORIENTATION: Yes oriented to place and Yes oriented to time MENINGEAL SIGNS: Yes no meningeal signs Psych: COMMON NORMALS: Normal thought process present and speech normal A PPEARANCE: Yes grossly normal and Yes well kempt ATTITUDE: Yes aggressive and Yes hostile SPEECH: Yes normal speech MOOD & AFFECT: No fearful and Yes hostile affect THOUGHT PROCESS: Normal thought process present THOUGHT CONTENT: Yes Normal thought content present ATTENTION/CONCENTRATION: Yes attention grossly intact MEMORY/COGNITION: Yes memory grossly intact I NSIGHT: Fair insight present (Psych) Course 2 Vital Signs: Vital signs: Vital Signs Temperature 98 F 09/05/23 21:07 Pulse Rate 146 H 09/05/23 21:20 Respiratory Rate 16 09/05/23 21:20 Blood Pressure 179/129 09/05/23 21:20 Pulse Oximetry 95 09/05/23 21:20 MDM - Overdose Medical Decision Making Patient made comfortable emergency room extensive workup with CBC, CMP, UDS, EKG and she was given IV fluid and Ativan. Upon reassessment patient was awake alert and denies any homicidal, suicidal ideation or hallucination. Patient was very pleasant, she was able to eat without any vomiting. Patient be discharged with family. Differential Diagnosis Likely cocaine intoxication, suicide attempt by multiple drug overdose, poisoning by opiate or related narcotic, drug overdose, acetaminophen overdose and accidental drug ingestion Lab Data 09/05/23 21:15 09/05/23 21:15 Laboratory Results WBC 15.95 10^3/uL (3.29-11.43) H 09/05/23 21:15 RBC 4.19 10^6/uL (3.85-5.65) 09/05/23 21:15 Hgb 12.90 g/dL (11.27-16.99) 09/05/23 21:15 Hct 37.7 % (36-47) 09/05/23 21:15 MCV 90.0 fl (85-98) 09/05/23 21:15 MCH 30.8 pg (27-33) 09/05/23 21:15 MCHC 34.2 g/dL (30-55) 09/05/23 21:15 RDW 11.9 % (12.1-15.1) L 09/05/23 21:15 Plt Count 505 10^3/cmm (157-399) H 09/05/23 21:15 MPV 9.6 fL (7.4-10.4) 09/05/23 21:15 Neut % (Auto) 40.2 % 09/05/23 21:15 Lymph % (Auto) 48.3 % 09/05/23 21:15 [place] % (Auto) 5.3 % 09/05/23 21:15 Eos % (Auto) 5.1 % 09/05/23 21:15 Baso % (Auto) 0.6 % 09/05/23 21:15 Neut # (Auto) 6.41 10^3/uL (1.8-7.7) 09/05/23 21:15 Lymph # (Auto) 7.7 10^3/uL (0.8-4.8) H 09/05/23 21:15 [place] # (Auto) 0.9 10^3/uL (0.2-0.9) 09/05/23 21:15 Eos # (Auto) 0.8 10^3/uL (0.0-0.8) 09/05/23 21:15 Baso # (Auto) 0.1 10^3/uL (0.0-0.1) 09/05/23 21:15 Nucleated RBC % (auto) 0 % 09/05/23 21:15 Nucleated RBCs # 0.0 /100WBC 09/05/23 21:15 Sodium 138 mmol/L (136-145) 09/05/23 21:15 Potassium 3.4 mmol/L (3.5-5.1) L 09/05/23 21:15 Chloride 101 mmol/L (98-107) 09/05/23 21:15 Carbon Dioxide 19 mmol/L (22-29) L 09/05/23 21:15 Anion Gap 21.4 (5-19) H 09/05/23 21:15 BUN 10 mg/dL (6-20) 09/05/23 21:15 Creatinine 0.7 mg/dL (0.5-0.9) 09/05/23 21:15 GFR Calculation 102.0 mL/min (90-130) 09/05/23 21:15 Glucose 211 mg/dL (65-115) H 09/05/23 21:15 Calculated Osmolality 291 mOsm/kg (285-295) 09/05/23 21:15 Calcium 9.3 mg/dL (8.5-10.5) 09/05/23 21:15 Total Bilirubin 0.2 mg/dL (0.15-1.2) 09/05/23 21:15 AST 15 U/L (0-32) 09/05/23 21:15 ALT 21 U/L (0-33) 09/05/23 21:15 Alkaline Phosphatase 86 U/L (35-105) 09/05/23 21:15 Total Protein 7.0 g/dL (6.6-8.7) 09/05/23 21:15 Albumin 4.2 g/dL (3.5-5.2) 09/05/23 21:15 Globulin 2.8 g/dL (1.3-4.6) 09/05/23 21:15 Salicylates 0.6 mg/dL (3-10) L 09/05/23 21:15 Acetaminophen < 5.0 ug/mL (10-30) L 09/05/23 21:15 Ethyl Alcohol < 10 mg/dL (0-10) 09/05/23 21:15 No radiology studies performed this visit EKG Data EKG 1: Interpretation: Sinus tachycardia with rate of [address] changes. [place] interval 155 QRS duration 79 QT 310. Discharge Plan Discharge Patient Disposition: Home Clinical Impression: Severe tetrahydrocannabinol (THC) dependence, Tachycardia, Drug overdose Overdose Qualifiers: Encounter type: initial encounter Condition: Stable Prescriptions: No Action aripiprazole 10 mg Tablet 5 mg PO DAILY 30 Days Qty: 15 1RF venlafaxine 150 mg capsule,extended release 24hr 150 mg PO DAILY 30 Days Qty: 30 1RF albuterol sulfate 90 mcg/actuation HFA aerosol inhaler 2 puff INHALATION Q4H PRN (Reason: Shortness Of Breath) fluticasone propionate [Flonase Allergy Relief] 50 mcg/actuation spray,suspension 2 spray intranasal DAILY PRN (Reason: Allergy Symptoms) Rx Instructions: administer into each nostril fluticasone propionate [Flovent HFA] 220 mcg/actuation HFA aerosol inhaler 1 puff INHALATION BID naproxen sodium 375 mg tablet, ER multiphase 24 hr 375 mg PO DAILY PRN (Reason: headache) Qty: 20 0RF cyclobenzaprine 10 mg tablet 10 mg PO Q8H PRN (Reason: muscle spasm) Qty: 20 0RF Discharge Orders: Discharge ED (Routine); Ordered 09/05/23 Ordered By: Vern Perez Referrals: Becca Harris PA [Primary Care Provider] - Discharge Diet: Advance as tolerated Discharge Activity: Resume usual activity Patient Instructions: Opioid Safety, Pain Management Coding Level of Care Code ED Heel Varnisher for Chg Anthony
[2023-09-05 21:48] LABS: Slide Review Slide Review Perform
[2023-09-05 23:48] VITALS: PULSE 108; RESP 16; O2SAT 100
== END 2023-09-06 00:07 | disposition home or self-care (01) ==
PROVIDERS: Emergency Provider Family Medicine; PCP Physician Assistant
DX: T40.711A Poisoning by cannabis, accidental (unintentional), initial encounter (principal); F12.20 Cannabis dependence, uncomplicated; R00.0 Tachycardia, unspecified
CPT/HCPCS: 80053; 80307; 85025; 93005; 96374; 99284; J2060; J7030

== ENCOUNTER 2023-09-06 15:23 | Emergency (ER) | payer MEDICAID, SELFPAY ==
[2023-09-06 15:46] VITALS: BP 154/86; PULSE 107; RESP 18; TEMP 36.8; BMI 33.0
--- NOTE | 2023-09-06 15:54 | ECG_ITS ---
[facility] Test Date: 2023-09-06 Pat Name: Helen Greenwood Department: Room: Gender: Female Circus Roustabout: : 2000 Requested By: Jaguar Ramos Order Number: [id number] Faustino MD: Colton Alvarado M.D. Measurements Intervals [place] Rate: 106 P: 50 [place]: 200 QRS: 38 QRSD: 77 T: 9 QT: 327 QTc: 436 Interpretive Statements SINUS TACHYCARDIA Compared to ECG 09/05/2023 21:47:43 T-wave abnormality no longer present Electronically Signed On 09-07-2023 10:21:22 COMMUNICATIONS EQUIPMENT OPERATOR by Colton Alvarado M.D. [id number]
--- NOTE | 2023-09-06 16:23 | ED_ITS ---
HPI - Chest Pain General: Chief Complaint: Chest Pain Stated Complaint: she was here OD 09/06 still feels high Time Seen by Provider: 09/06/23 16:09 History of Present Illness: Patient presents to the ER with anxiety and chest pain. Patient states she ate 100 mg gummy last night and now she is high does not want to be high anymore. She did come to the ER last night for similar complaints. Patient now says she is unable to relax she is very anxious and she just wants it to go away. She does states she has some pain in the middle of her chest that does not radiate and nothing makes it better or worse. Patient appears in no acute distress at this time. Review of Systems General: Reports: 10 or more systems reviewed and unremarkable except in HPI and below PFSH ED PFSH: Medical History Depression Psychiatric care Social History Smoking and tobacco/nicotine status: never used tobacco/nicotine Physical Exam Const: COMMON NORMALS: no acute distress, average body habitus, patient oriented x3, no limitations, healthy appearing, alert and well nourished Neck/C-Spine: COMMON NORMALS: no JVD Chest: COMMONS NORMALS: normal inspection of the chest and normal palpation of entire chest wall Resp: COMMON NORMALS: normal respiratory effort, No retractions, No use of accessory muscles and clear to auscultation bilaterally AUSCULTATION: clear to auscultation bilaterally Cardio: COMMON NORMALS: no JVD, regular rate, regular rhythm, S1 normal heart sound present, S2 normal heart sound present, No gallops present (Cardio), No clicks present (Cardio), No murmurs present (Cardio) and No rub (Cardio) RATE: regular rate RHYTHM: regular rhythm HEART SOUNDS: S1 normal heart sound present and S2 normal heart sound present GI: COMMON NORMALS: Normal to inspection, nondistended, normoactive bowel sounds present, Soft to palpation, non-tender, No hepatosplenomegaly present and no masses PALPATION: Yes Soft to palpation and Yes No hepatosplenomegaly present Neuro: COMMON NORMALS: patient oriented x3 SENSORIUM/ORIENTATION: Yes alert Course Vital Signs: Vital signs: Vital Signs Temperature 98.2 F 09/06/23 15:46 Pulse Rate 107 H 09/06/23 15:46 Respiratory Rate 18 09/06/23 15:46 Blood Pressure 154/86 09/06/23 15:46 Oxygen Delivery Me thod Room Air 09/06/23 15:46 MDM - Chest Pain Medical Decision Making The note and lab work from yesterday's ER visit was reviewed. Differential Diagnosis Unlikely acute massive pulmonary embolism, acute respiratory failure, acute myocardial infarction, cardiac arrest or sudden cardiac Medical Records I reviewed the patient's medical records. Lab Data I reviewed the patient's lab results. No radiology studies performed this visit EKG Data EKG 1: I personally reviewed and interpreted this EKG as follows: EKG interpretation date: 09/06/23 EKG interpretation time: 15:54 Prior EKG tracings: not available for review Interpretation: EKG shows ventricular rate 106 bpm, NE interval 200, QRS duration 77, QTc 389, sinus tachycardia, Discharge Plan Discharge Patient Disposition: Home Clinical Impression: Generalized anxiety disorder, Mild tetrahydrocannabinol (THC) abuse Condition: Stable Prescriptions: No Action aripiprazole 10 mg Tablet 5 mg PO DAILY 30 Days Qty: 15 1RF venlafaxine 150 mg capsule,extended release 24hr 150 mg PO DAILY 30 Days Qty: 30 1RF ziprasidone HCl 80 mg Capsule See Rx Instructions .ROUTE .COMPLEX Rx Instructions: Take 80 mg orally twice daily after taking 40 mg twice daily for 7 days. lamotrigine 25 mg Tablet 25 mg PO DAILY folic acid 1 mg Tablet 2 mg PO DAILY ziprasidone HCl 40 mg Capsule See Rx Instructions .ROUTE .COMPLEX Rx Instructions: Take 40 mg orally for 7 days, then start 80 mg twice daily. fluticasone propionate [Flonase Allergy Relief] 50 mcg/actuation spray,suspension 2 spray intranasal DAILY PRN (Reason: Allergy Symptoms) Rx Instructions: administer into each nostril naproxen sodium 375 mg tablet, ER multiphase 24 hr 375 mg PO DAILY PRN (Reason: headache) Qty: 20 0RF cyclobenzaprine 10 mg tablet 10 mg PO Q8H PRN (Reason: muscle spasm) Qty: 20 0RF Discharge Orders: Discharge ED (Routine); Ordered 09/06/23 Ordered By: Gregg Huff Referrals: Becca Harris PA [Primary Care Provider] - 1 week Patient Instructions: Anxiety (ED), Marijuana Abuse Activity Restrictions/Additional Instructions: Please not use any more Gummies or THC containing products. These products have to wear off. There is no reversal medication. Coding Level of Care Code ED Associate Professor Of Counseling for Jazmine Cruz
== END 2023-09-06 17:18 | disposition home or self-care (01) ==
PROVIDERS: Emergency Provider Emergency Medicine; PCP Physician Assistant
DX: F41.1 Generalized anxiety disorder (principal); F12.10 Cannabis abuse, uncomplicated
CPT/HCPCS: 93005; 99283